=== PATIENT | male | born 1965 | race Caucasian/White ===

== ENCOUNTER 2019-11-12 10:21 | Emergency (ER) | payer OTHER, SELFPAY ==
[2019-11-12 10:23] VITALS: BP 151/79; PULSE 87; RESP 18; TEMP 37.2; O2SAT 99
[2019-11-12] MEDS: TETANUS,DIPHTHERIA,AC PERTUSSIS ADULT 0.5 ML (ADACEL) IM (10:49)
--- NOTE | 2019-11-12 10:56 | ED.WOUNDLAC ---
HPI - Wound/Laceration General Chief Complaint: Wound/Laceration Stated Complaint: Left hand finger laceration Time Seen by Provider: 11/12/19 11:06 Source: patient and RN notes reviewed Mode of arrival: ambulatory Limitations: no limitations History of Present Illness HPI narrative: 53-year-old male presents with concern for fingertip injury. Reports yesterday at 3:00 he was cutting drywall with a razor knife worried he cut the tip of his left index finger. He reports he did not wash the wound at that time, he covered it with Neosporin and a dressing and uncovered this morning. He reports he thought he would come into get it evaluated and cleaned. He is unsure of his tetanus status. He reports minimal pain to the tip of the digit. Related Data Home Medications Medication Instructions Recorded Confirmed atorvastatin 11/12/19 diclofenac sodium PO 11/12/19 doxycycline hyclate 11/12/19 olmesartan 11/12/19 Allergies Allergy/AdvReac Type Severity Reaction Status Date / Time No Known Allergies Allergy Verified 11/12/19 10:37 Review of Systems Review of Systems: Narrative: CONSTITUTIONAL: Denies malaise, chills, sweats, or fever. SKIN: Reports injury to the second digit of the left hand sustained yesterday MUSCULOSKELETAL: Denies finger pain NEUROLOGIC: Denies numbness, weakness. All systems reviewed & are unremarkable except as noted in HPI and below PMFSH Comments At time of signature, agree with nursing past medical, surgical, social and family history. There is no relevant family history pertinent to the presenting complaint Exam Narrative: Exam Narrative: GENERAL: Well-appearing, well-nourished, and in no acute distress. HEAD: Normocephalic, atraumatic. EYES: PERRLA, conjunctivae clear NECK: Supple. CHEST: Speaks in full sentences. No respiratory distress. HEART: Regular rate and rhythm. Normal and equal peripheral pulses. EXTREMITIES: Left hand and digits of hand has normal strength. 5/5 strength with digit flexion, extension. Range of motion normal. No clubbing, cyanosis, or edema noted. No tenderness. Skin intact. Normal digital cascade with flexion of fingers, median, ulnar and radial nerve intact. Normal sensation of each side of finger; decreased sensation to the distal end of the digit. Good capillary refill and radial pulse. Distal capillary refill ?3 seconds. SKIN: Warm, dry, no rash. 2 cm x 1 cm avulsion noted to the lateral edge of the second digit of the left hand NEURO: Alert and oriented x3. PSYCH: Normal mood and affect Course Course Emergency Course: Patient is aware of diagnosis, understands and agrees to treatment plan. Anticipatory guidance given. Patient agrees to follow-up as directed and is aware of reasons to seek care at the emergency department. Portions of this record may have been created with voice recognition software Vital Signs Vital signs: Vital Signs Temperature 98.9 F 11/12/19 10:23 Pulse Rate 87 11/12/19 10:23 Respiratory Rate 18 11/12/19 10:23 Blood Pressure 151/79 H 11/12/19 10:23 Pulse Oximetry 99 11/12/19 10:23 Temperature 98.9 F 11/12/19 10:23 Pulse Rate 87 11/12/19 10:23 Respiratory Rate 18 11/12/19 10:23 Blood Pressure 151/79 H 11/12/19 10:23 Pulse Oximetry 99 11/12/19 10:23 Reviewed. Patient has current diagnosis of hypertension MDM - Wound/Laceration MDM Narrative Medical decision making narrative: Exam findings show no acute concerns or changes; patient is non-toxic appearing and is in no distress. Patient is appropriate for outpatient treatment and follow-up. Differential Diagnosis Differential diagnosis: Likely laceration, abrasion and avulsion of skin Critical Care Time Critical Care Time Critical Care Time: No Discharge Plan Discharge Clinical Impression: Avulsion of skin Patient Disposition: Home, Self-Care Condition: Stable Instructions: Skin Avulsion (ED) Additional Instructions: Wash yo
== END 2019-11-12 11:20 | disposition home or self-care (01) ==
PROVIDERS: Emergency Provider Nurse Practitioner; PCP Family Medicine Adolescent Medicine
DX: S61.201A Unspecified open wound of left index finger without damage to nail, initial encounter (principal); W27.8XXA Contact with other nonpowered hand tool, initial encounter; Z23 Encounter for immunization; G70.00 Myasthenia gravis without (acute) exacerbation
CPT/HCPCS: 90471; 90715; 99202; G0463

== ENCOUNTER 2020-09-10 09:50 | Outpatient (CLI) | payer OTHER, SELFPAY ==
--- NOTE | ~2020-09-10 | CT_ITS ---
EXAMINATION: CT abdomen pelvis wo con EXAM DATE: 09/10/2020 12:02 INDICATION: Left ureteral stone follow-up. TECHNIQUE: Spiral CT of the abdomen and pelvis was performed without contrast. Axial, coronal and sag ittal images were reviewed. The dose-length product (DLP) for this examination was 510.47 mGy-cm. T he exposure was tailored according to patient size (auto mA exposure control), and iterative reconstr uction (ASIR) was used as additional dose reduction technique. There is no prior study for compariso n. FINDINGS: There is a 3 mm stone in the distal aspect of the left ureter, 1 cm from the ureterovesicul ar junction. This is seen on axial image 179. There is mild left-sided obstructive nephropathy. Punct ate 2 mm right inferior calyceal stone. There is mild bilateral perinephric fat stranding. Mild pros tatomegaly. The bladder is unremarkable. The liver, spleen, adrenal glands and pancreas are unremar kable. Gallbladder is unremarkable. No biliary obstruction. There is no retroperitoneal or pelvic lymphadenopathy. There is mild scattered arteriosclerotic disease. The appendix is normal. The stomach and small bowel are unremarkable. There is expected amount of c olonic stool. No free intraperitoneal gas. The heart is normal in size. There are no pericardial or pleural effusions. The lung bases are unremarkable. There are no osteoblastic or osteolytic les ions identified. IMPRESSION: 1. Distal left ureteral 3 mm stone, mild obstructive nephropathy. Difficult to confidently identify this on KUB obtained same date. 2. Punctate right nephrolithiasis. Reviewed, dictated and finalized at location B. IRATORY SUPPORT TECHNICIAN
--- NOTE | ~2020-09-10 | XR_ITS ---
EXAMINATION: XR abdomen/kub 1V DATE: 09/10/2020 10:03 INDICATION: Left ureteral stone. TECHNIQUE: A supine view of the abdomen on 2 radiographs was obtained. COMPARISON: None. FINDINGS: There are no dilated loops of bowel. The kidneys are obscured by bowel. A 2 mm density over lying the right kidney may be a stone. There are phleboliths in the pelvis. A 7 x 5 mm calcification in left pelvis may be a distal ureteral stone or phlebolith. IMPRESSION: 1. 7 x 5 mm calcification in left pelvis, which may be a distal ureteral stone or a phlebolith. 2. 2 mm density overlying the right kidney, which may be a stone. Reviewed, dictated and finalized at location A. CLOTHIER
== END 2020-09-10 09:51 | disposition home or self-care (01) ==
PROVIDERS: PCP Family Medicine; Visit Provider Urology
DX: N20.2 Calculus of kidney with calculus of ureter (principal)
CPT/HCPCS: 74018; 74176

== ENCOUNTER → 2021-02-17 18:13 | Outpatient (CLI) | payer OTHER, SELFPAY ==
--- NOTE | ~2021-02-17 | XR_ITS ---
EXAMINATION: XR shoulder RT min 2V DATE: 02/17/2021 18:56 INDICATION: Right shoulder pain. TECHNIQUE: 4 views of right shoulder were obtained. COMPARISON: None. FINDINGS: Bone alignment is normal. No fracture. There is mild osteoarthritis of glenohumeral joint a nd severe osteoarthritis of acromioclavicular joint. IMPRESSION: 1. Polyarticular osteoarthritis. Reviewed, dictated and finalized at location A.
--- NOTE | ~2021-02-17 | XR_ITS ---
EXAMINATION: XR lumbar spine 2-3V DATE: 02/17/2021 18:56 INDICATION: Low back pain. TECHNIQUE: 3 views of lumbar spine were obtained. COMPARISON: CT abdomen and pelvis 09/10/2020 FINDINGS: There is 4 degrees dextrocurvature of thoracolumbar spine. There is 3 mm retrolisthesis of L1 on L2 and L2 on L3. There is a chronic compression fracture of L1. There is mildly decreased disc height at L1-L2, severely decreased disc height at L2-L3, and mildly decreased disc height at L3-L4. There are endplate osteophytes at all levels. IMPRESSION: 1. Severe lumbar spondylosis. Reviewed, dictated and finalized at location A.
== END ==
PROVIDERS: PCP Family Medicine; Visit Provider Family Medicine
DX: M47.896 Other spondylosis, lumbar region (principal); M19.011 Primary osteoarthritis, right shoulder
CPT/HCPCS: 72100; 73030

== ENCOUNTER 2021-09-07 09:29 | Emergency (ER) | payer OTHER, SELFPAY ==
--- NOTE | 2021-09-07 09:32 | ED.URI ---
HPI - URI/Sore Throat General Chief Complaint: Upper Respiratory Infection Stated Complaint: sore throat/body aches/chills Time Seen by Provider: 09/07/21 09:34 Source: patient, family (), RN notes reviewed and old records reviewed Mode of arrival: ambulatory Limitations: no limitations History of Present Illness HPI Narrative: 55-year-old male presents to the [facility] with complaints of a sore throat. Patient states that it started or Wednesday. States he is eating and drinking but it hurts to swallow. Patient is maintaining on secretions MD elicited complaint: sore throat Related Data Home Medications Medication Instructions Recorded Confirmed atorvastatin 40 mg PO DAILY 11/12/19 09/07/21 diclofenac sodium 75 mg PO DAILY 11/12/19 09/07/21 doxycycline hyclate 20 mg PO DAILY 11/12/19 09/07/21 olmesartan 40 mg PO DAILY 11/12/19 09/07/21 Allergies Allergy/AdvReac Type Severity Reaction Status Date / Time No Known Allergies Allergy Verified 09/07/21 09:38 Review of Systems Review of Systems: All systems reviewed & are unremarkable except as noted in HPI and below Constitutional: Constitutional: Reports as per HPI, Reports chills, Denies fever(s) and Denies headache(s) Eyes: Eyes: Reports no additional eye complaints ENT: Reports as per HPI, Denies vertigo, Denies dizziness, Denies headache(s), Denies nasal congestion and Reports sore throat Cardiovascular: Cardiovascular: Reports no additional cardiovascular complaints, Denies chest pain, Denies syncope, Denies rapid heart rate and Denies dyspnea Respiratory: Respiratory: Reports no additional respiratory complaints, Denies cough, Denies dyspnea and Denies wheezing Gastrointestinal: Gastrointestinal: Reports no additional gastrointestinal complaints, Denies abdominal pain, Denies diarrhea, Denies nausea and Denies vomiting Musculoskeletal: Musculoskeletal: Reports no additional musculoskeletal complaints and Denies numbness Integumentary/Breasts: Skin/Breast: Reports system reviewed and no additional complaints, except as docu Neurologic: Reports system reviewed and no additional complaints, except as documented, Denies vertigo, Denies dizziness, Denies syncope, Denies headache(s), Denies focal weakness and Denies numbness Psychiatric: Psychiatric: Reports no additional psychiatric complaints Allergic/Immunologic: Allergic/Immunologic: Reports no additional allergic/immunologic complaints and Denies wheezing PMFSH Past Medical History Medical History (Updated 09/07/21 @ 10:03 by Margie Vogel) High cholesterol Hypertension Surgical History Surgical History (Updated 09/07/21 @ 09:49 by Margie Vogel) History of tonsillectomy Comments At the time of my signature, I reviewed and agree with the nursing past medical, surgical, social, and family history. There is no relevant family history pertinent to the patient complaint. Exam Const: General: healthy appearing, no acute distress and alert Nutritional Appearance: well nourished Orientation/consciousness: patient oriented x3 Limitations: no limitations HENMT: Head: normal to inspection Ears: external ears normal, TM's normal bilaterally and EAC's normal General nose exam: Normal external nose present and Normal nasal mucous membranes and turbinates present Face and sinus: normal facial exam Mouth: Yes Normal oral and palatal mucosa present Throat: posterior oropharynx normal, uvula midline, tonsils absent and no uvular edema Eyes: Conjunctivae: conjunctivae normal Pupils: Equal, round and reactive pupils present Neck: Neck: normal visual inspection, no lymphadenopathy and no meningeal signs Chest: Chest palpation & inspection: normal inspection of the chest Resp: Effort & Inspection: normal respiratory effort and no use of accessory muscles Auscultation: clear to auscultation bilaterally, no crackles, no rales, no rhonchi and no wheezes Cardio: Rate: regular rate Rhythm: reg
[2021-09-07 09:37] VITALS: BP 128/79; PULSE 94; RESP 16; TEMP 37.4; O2SAT 100
[2021-09-07 09:38] VITALS: RESP 16
[2021-09-07 09:41] VITALS: BP 128/79; PULSE 94; RESP 94; TEMP 37.4
[2021-09-07 10:05] VITALS: RESP 16
--- NOTE | 2021-09-07 10:06 | PC.NURSE ---
0951 ERROR MADE ON RESPIRATION, CORRECTED WOULD NOT USE CORRECTION
== END 2021-09-07 10:25 | disposition home or self-care (01) ==
PROVIDERS: Emergency Provider Nurse Practitioner; PCP Family Medicine
DX: J02.9 Acute pharyngitis, unspecified (principal); E78.00 Pure hypercholesterolemia, unspecified; I10 Essential (primary) hypertension
CPT/HCPCS: 87081; 87880; 99213; G0463

== ENCOUNTER → 2022-09-30 16:42 | Outpatient (CLI) | payer OTHER, SELFPAY ==
--- NOTE | ~2022-09-30 | XR_ITS ---
Clinical Indication: Cough PA and lateral views of the chest: Comparison: None Findings: The lungs are clear, without evidence of focal consolidation or pleural effusion. Cardiome diastinal silhouette is within normal limits. Bones and soft tissues are unremarkable. Impression: Normal chest. Reviewed, dictated and finalized at location . 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
== END ==
PROVIDERS: PCP Family Medicine; Visit Provider Family Medicine
DX: R05.9 Cough, unspecified (principal)
CPT/HCPCS: 71046

== ENCOUNTER 2022-10-05 07:07 | Day surgery (SDC) | payer OTHER, SELFPAY ==
[2022-08-05 11:45] VITALS: BMI 34.4
[2022-09-22 13:40] VITALS: BMI 34.9
--- NOTE | 2022-10-02 14:17 | PM.HPGS ---
History of Present Illness History of Present Illness Consent: Risks, benefits, and alternatives have been discussed and questions answered. Patient agrees to proceed with procedure. Chief complaint: Neoplasm Screening Narrative: John Juarez is a 56 year old male referred for colon cancer screening Review of Systems Review of Systems: All systems reviewed & are unremarkable except as noted in HPI and below PMFSH Past Medical History Medical History High cholesterol Hypertension Ocular myasthenia gravis Surgical History Surgical History History of tonsillectomy Social History Social History Smoking status: Current some day smoker Tobacco type: cigars Alcohol intake: current Alcohol use details: socially Substance use: never Substance use type: does not use Living arrangements: with family Spiritual care concerns: No Meds Home Medications and Allergies Home Medications Medication Instructions Recorded Confirmed Type atorvastatin 40 mg tablet 40 mg PO DAILY 11/12/19 10/05/22 History diclofenac sodium 75 mg 75 mg PO DAILY 11/12/19 10/05/22 History tablet,delayed release doxycycline hyclate 20 mg tablet 20 mg PO DAILY 11/12/19 10/05/22 History olmesartan 40 mg tablet 40 mg PO DAILY 11/12/19 10/05/22 History Allergies Allergy/AdvReac Type Severity Reaction Status Date / Time No Known Allergies Allergy Verified 10/05/22 07:50 Exam Const: General: alert Orientation/consciousness: patient oriented x3 Resp: Auscultation: clear to auscultation bilaterally Cardio: Rhythm: regular rhythm GI: GI Palp: Yes Soft to palpation and No Tenderness to palpation present (GI) Neuro: General: patient oriented x3 Assessment and Plan Assessment and plan (1) Colon cancer screening: Code(s): Z12.11 - Encounter for screening for malignant neoplasm of colon Status: Acute Assessment and Plan: Colonoscopy with possible biopsy or polypectomy or cautery or injection of substances.
--- NOTE | 2022-10-05 07:18 | P.PNAN_ITS ---
Anes - Initial Pre Proc Eval Procedure: Operation Date: 10/05/22 09:00 Proposed Procedures p Screening Colonoscopy - Ilya Jaffe MD Date/Time: 10/05/22 07:18 Surgeon: Ilya Jaffe MD Pre Op Diagnosis: Neoplasm Screening Patient Data Age: 56 Gender: M Height: 1.83 m Weight: 117 kg Allergies Allergy/AdvReac Type Severity Reaction Status Date / Time No Known Allergies Allergy Verified 10/05/22 07:50 Home Medications Medication Instructions Recorded Confirmed Type atorvastatin 40 mg tablet 40 mg PO DAILY 11/12/19 09/07/21 History diclofenac sodium 75 mg 75 mg PO DAILY 11/12/19 09/07/21 History tablet,delayed release doxycycline hyclate 20 mg tablet 20 mg PO DAILY 11/12/19 09/07/21 History olmesartan 40 mg tablet 40 mg PO DAILY 11/12/19 09/07/21 History Patient hx anesthesia problems: none Family hx anesthesia problems: none Results Review: All pre-operative results and documents have been reviewed as part of the pre- operative evaluation. [facility] Past Medical History Medical History (Updated 10/05/22 @ 07:18 by Aaron Egan DO) High cholesterol Hypertension Ocular myasthenia gravis Surgical History Surgical History (Updated 09/07/21 @ 09:49 by Margie Vogel APRN) History of tonsillectomy Social History Social History Smoking status: Current some day smoker Tobacco type: cigars Alcohol intake: current Alcohol use details: socially Substance use: never Substance use type: does not use Living arrangements: with family Spiritual care concerns: No Anes - Eval Final PreProcedure Day of Procedure 10/05/22 07:18 Patient weight: obese Heart: regular rate and rhythm Lungs: clear to auscultation Airway: Mallampati scale class II Neurological: alert and oriented Last oral intake: >/= 8 hours ASA classification: III Emergent: no Anesthetic plan: proceed Anesthesia type and monitoring: general GIVS and standard monitoring Results Review: All pre-operative results and documents have been reviewed as part of the pre- operative evaluation. Informed Consent: The patient's anesthetic plan and its attendant risks and benefits were discussed with the patient/family/POA. Questions were solicited and answers provided to the satisfaction of the patient/family/POA.
[2022-10-05 07:45] VITALS: BP 116/94; PULSE 108; RESP 18; TEMP 36.4; O2SAT 99
[2022-10-05] MEDS: LACTATED RINGERS 1,000 ML 150 ML IV CONT (08:03)
[2022-10-05 09:07] VITALS: BP 94/73; PULSE 92; RESP 16; O2SAT 95
[2022-10-05 09:17] VITALS: BP 106/78; PULSE 93; RESP 15; O2SAT 97
[2022-10-05 09:27] VITALS: BP 106/80; PULSE 89; RESP 15; O2SAT 99
--- NOTE | 2022-10-05 11:58 | WPDANESPN ---
Anes - Prog Note Post-Op Date/Time: 10/05/22 11:58 Cardiovascular status: normal Respiratory status: normal Airway patency: baseline Mental status: baseline Post-Op hydration status: normal Vital Signs: Last Vital Signs Temp 36.4 C 10/05/22 07:45 Pulse 89 10/05/22 09:27 Resp 15 10/05/22 09:27 BP 106/80 10/05/22 09:27 Pulse Ox 99 10/05/22 09:27 O2 Del Method Room Air 10/05/22 09:27 Pain Score (VAS): 0 I/O: Intake & Output 10/04/22 10/05/22 10/05/22 23:59 07:59 15:59 Intake Total 400 Balance 400 Post-procedural complaints: none Patient Feedback: Patient satisfied with anesthetic care. Other Findings: Patient vital signs back to baseline. Patient denies nausea and vomiting. Patient's pain under control. Patient OK for discharge.
== END 2022-10-05 09:40 | disposition home or self-care (01) ==
PROVIDERS: PCP Family Medicine; Visit Provider Internal Medicine Gastroenterology
PROC: 0DJD8ZZ Inspection of Lower Intestinal Tract, Via Natural or Artificial Opening Endoscopic (ICD-10-PCS; CPT 45378; principal; 2022-10-05 09:00)
DX: Z12.11 Encounter for screening for malignant neoplasm of colon (principal)
CPT/HCPCS: 45378

== ENCOUNTER 2023-01-20 08:12 | Outpatient (CLI) | payer OTHER, SELFPAY ==
--- NOTE | 2023-01-20 | EST_ITS ---
Patient Info Name: John Juarez Age: 57 years : 1965 Gender: Male Ht: 73 in Wt: 260 lbs BSA: 2.50 m2 HR: 78 bpm BP: 117 / 83 mmHg Heart Rhythm: Sinus Rhythm Exam Date: 01/20/2023 9:12 AM Exam Location: [facility] Stress Patient Status: Outpatient Admit Date: 01/20/2023 Staff Ordering Physician: Eladio, Asia Sanchez MD Attending Provider: Eladio, Asia Sanchez MD Exercise Technologist: Ying Vu CT Exercise Physician: Victoria Green MD Exam Type: CA stress test treadmill Study Info Indications R53.82 - Chronic fatigue, unspecified R06.09 - Other forms of dyspnea A treadmill exercise stress test was performed. Summary 1. Exercise capacity very good at >10 METS. 2. Hypertensive blood pressure response to exercise. 3. No abnormal ST/T wave changes diagnostic of ischemia with exercise. 4. No arrhythmias. Protocol: Be Stress ECG Details Stage: REST Duration (min): 1 min : 39 sec Speed (mph): 0.0 Grade (%): 0 HR (bpm): 77 SBP (mmHg): 117 DBP (mmHg): 83 METS: --- Stage: REST Duration (min): 2 min : 33 sec Speed (mph): 0.0 Grade (%): 0 HR (bpm): 79 SBP (mmHg): 117 DBP (mmHg): 83 METS: --- Stage: STAGE 1 Duration (min): 1 min : 0 sec Speed (mph): 1.7 Grade (%): 10 HR (bpm): 105 SBP (mmHg): 117 DBP (mmHg): 83 METS: --- Stage: STAGE 1 Duration (min): 2 min : 0 sec Speed (mph): 1.7 Grade (%): 10 HR (bpm): 110 SBP (mmHg): 117 DBP (mmHg): 83 METS: --- Stage: STAGE 1 Duration (min): 3 min : 0 sec Speed (mph): 1.7 Grade (%): 10 HR (bpm): 106 SBP (mmHg): 186 DBP (mmHg): 100 METS: --- Stage: STAGE 2 Duration (min): 1 min : 0 sec Speed (mph): 2.5 Grade (%): 12 HR (bpm): 117 SBP (mmHg): 122 DBP (mmHg): 86 METS: --- Stage: STAGE 2 Duration (min): 2 min : 0 sec Speed (mph): 2.5 Grade (%): 12 HR (bpm): 119 SBP (mmHg): 168 DBP (mmHg): 87 METS: --- Stage: STAGE 2 Duration (min): 3 min : 0 sec Speed (mph): 2.5 Grade (%): 12 HR (bpm): 120 SBP (mmHg): 168 DBP (mmHg): 87 METS: --- Stage: STAGE 3 Duration (min): 1 min : 0 sec Speed (mph): 3.4 Grade (%): 14 HR (bpm): 131 SBP (mmHg): 165 DBP (mmHg): 81 METS: --- Stage: STAGE 3 Duration (min): 2 min : 0 sec Speed (mph): 3.4 Grade (%): 14 HR (bpm): 137 SBP (mmHg): 165 DBP (mmHg): 81 METS: --- Stage: STAGE 3 Duration (min): 2 min : 59 sec Speed (mph): 3.4 Grade (%): 14 HR (bpm): 146 SBP (mmHg): 172 DBP (mmHg): 86 METS: --- Stage: RECOVERY Duration (min): 1 min : 0 sec Speed (mph): 0.0 Grade (%): 0 HR (bpm): 117 SBP (mmHg): 172 DBP (mmHg): 86 METS: --- Stage: RECOVERY Duration (min): 2 min : 0 sec Speed (mph): 0.0 Grade (%): 0 HR (bpm): 100 SBP (mmHg): 172 DBP (mmHg): 86 METS: --- Stage: RECOVERY Duration (min):
== END 2023-01-20 08:13 | disposition home or self-care (01) ==
PROVIDERS: PCP Family Medicine; Visit Provider Family Medicine
DX: R53.82 Chronic fatigue, unspecified (principal); R06.09 Other forms of dyspnea
CPT/HCPCS: 93017

== ENCOUNTER 2023-08-09 15:53 | Emergency (ER) | payer OTHER, SELFPAY ==
--- NOTE | ~2023-08-09 | XR_ITS ---
EXAMINATION: XR chest 2V DATE: 08/09/2023 17:09 INDICATION: Cough. Chest pressure. TECHNIQUE: Frontal and lateral views of the chest were obtained. COMPARISON: Chest 2 views 09/30/2022, CT abdomen and pelvis 09/10/2020 FINDINGS: There is no pneumonia, pleural effusion, or pneumothorax. The heart size is normal. IMPRESSION: 1. No acute cardiopulmonary disease. Reviewed, dictated and finalized at location [facility]. [facility] [employer] [facility]
--- NOTE | 2023-08-09 16:01 | ED.URI ---
HPI - URI/Sore Throat General Chief Complaint: Upper Respiratory Infection Stated Complaint: hard time breathing, tightness to chest,tired Time Seen by Provider: 08/09/23 16:45 Source: patient and RN notes reviewed Mode of arrival: ambulatory Limitations: no limitations History of Present Illness HPI Narrative: 57-year-old male presents with concern for chronic cough, tightness in his chest, fatigue. He reports cough is constant and persistent. He reports he feels a heaviness on his chest. He reports his doctor sometime over the last year had and start taking allergy medicine and using Flonase and that has not helped his symptoms. He denies any exacerbating or relieving factors. He had a stress test 8 months ago that was normal. MD elicited complaint: cough and other (Chest pressure) Related Data Home Medications Medication Instructions Recorded Confirmed atorvastatin 40 mg tablet 40 mg PO DAILY 11/12/19 08/09/23 diclofenac sodium 75 mg 75 mg PO DAILY 11/12/19 08/09/23 tablet,delayed release doxycycline hyclate 20 mg tablet 20 mg PO DAILY 11/12/19 08/09/23 olmesartan 40 mg tablet 40 mg PO DAILY 11/12/19 08/09/23 metformin 500 mg tablet,extended 500 mg PO DAILY 08/09/23 08/09/23 release 24 hr Allergies Allergy/AdvReac Type Severity Reaction Status Date / Time No Known Allergies Allergy Verified 08/09/23 16:16 Review of Systems Review of Systems: CONSTITUTIONAL: Denies malaise, chills, sweats, or fever. Reports fatigue EYES: Denies visual changes, redness, or discharge. ENT: Denies rhinorrhea, congestion, sinus pain, otalgia and sore throat. CARDIOVASCULAR: Denies chest pain, palpitations, or edema. Reports chest pressure RESPIRATORY: Reports cough, dyspnea. GASTROINTESTINAL: Denies abdominal pain, nausea, vomiting, diarrhea SKIN: Denies rash or itching. MUSCULOSKELETAL: Denies myalgia. NEUROLOGIC: Denies headache. All systems reviewed & are unremarkable except as noted in HPI and below PMFSH Past Medical History Medical History High cholesterol Hypertension Ocular myasthenia gravis Surgical History Surgical History History of tonsillectomy Social History Social History Smoking status: Current some day smoker Tobacco type: cigars Alcohol intake: current Alcohol use details: socially Substance use: never Substance use type: does not use Living arrangements: with family Spiritual care concerns: No Comments At time of signature, agree with nursing past medical, surgical, social and family history. There is no relevant family history pertinent to the presenting complaint Exam Narrative: GENERAL: Well-appearing, well-nourished, and in no acute distress. HEAD: Normocephalic EYES: PERRLA, conjunctivae clear ENT: Nares clear. Mucous membranes moist. TM pearly bonilla with sharp light reflex bilaterally; no tragal tenderness. Oropharynx not erythematous without lesions. Tonsils not enlarged and without exudate, no drooling, no hoarseness, no trismus, uvula midline. NECK: Supple. No lymphadenopathy CHEST: Clear to auscultation, breath sounds equal. No wheezing, rhonchi, rales, or stridor. No respiratory distress, speaks in full sentences. HEART: Regular rate and rhythm. No murmur heard. SKIN: Warm, dry, no rash. NEURO: Alert and oriented x3. PSYCH: Normal mood and affect Course Course Emergency Course: Patient is aware of diagnosis, understands and agrees to treatment plan. Anticipatory guidance given. Patient agrees to follow-up as directed and is aware of reasons to seek care at the emergency department. Portions of this record may have been created with voice recognition software Level of Care: Express Care Visit Vital Signs Vital signs: Reviewed. MDM - URI/Sore Throat MDM Narrative Medical decision gillian
[2023-08-09 16:07] VITALS: BP 126/87; PULSE 73; RESP 16; TEMP 36; O2SAT 98
--- NOTE | 2023-08-09 19:02 | ECG_ITS ---
Measurements Intervals [place] Rate: 72 P: 40 NV: 177 QRS: -15 QRSD: 109 T: 31 QT: 391 QTc: 429 Interpretive Statements SINUS RHYTHM CANNOT RULE OUT ANTERIOR INFARCTION ABNORMAL ECG NO PREVIOUS ECG AVAILABLE FOR COMPARISON Electronically Signed On 08-10-2023 16:50:42 FISH CONSERVATIONIST by Corwin Montejo M.D.
== END 2023-08-09 17:33 | disposition home or self-care (01) ==
PROVIDERS: Emergency Provider Nurse Practitioner; PCP Family Medicine
DX: R05.3 Chronic cough (principal); R94.31 Abnormal electrocardiogram [ECG] [EKG]; F17.290 Nicotine dependence, other tobacco product, uncomplicated; E78.00 Pure hypercholesterolemia, unspecified; I10 Essential (primary) hypertension; G70.00 Myasthenia gravis without (acute) exacerbation
CPT/HCPCS: 71046; 93005; 99213; G0463